=== PATIENT | female | born 1960 | race Caucasian/White ===

== ENCOUNTER 2017-05-06 11:47 | Emergency (ER) | payer OTHER ==
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
[2017-05-06 14:36] VITALS: BP 123/71; PULSE 71; RESP 18; TEMP 97.9; O2SAT 96
== END 2017-05-06 14:36 | disposition home or self-care (01) ==
DX: S16.1XXA Strain of muscle, fascia and tendon at neck level, initial encounter (principal); Z91.040 Latex allergy status; V49.40XA Driver injured in collision with unspecified motor vehicles in traffic accident, initial encounter; Y92.410 Unspecified street and highway as the place of occurrence of the external cause; Y99.8 Other external cause status; Y93.89 Activity, other specified

== ENCOUNTER → 2017-05-23 | Outpatient (CLI) | payer OTHER | LOC: FIMAGING 07:47 | PROVIDERS: ATTEND Family Medicine | DX: Z12.31 Encounter for screening mammogram for malignant neoplasm of breast (principal) | CPT/HCPCS: G0202 ==

== ENCOUNTER → 2017-05-28 | Outpatient (CLI) | payer OTHER | LOC: FIMAGING 07:19 | PROVIDERS: ATTEND Neurological Surgery | DX: M41.84 Other forms of scoliosis, thoracic region (principal); M46.96 Unspecified inflammatory spondylopathy, lumbar region; M50.322 Other cervical disc degeneration at C5-C6 level ==

== ENCOUNTER 2018-02-11 17:37 | Emergency (ER) | payer MEDICAID, OTHER ==
[2018-02-11 17:43] VITALS: TEMP 98.6
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
[2018-02-11] MEDS ORDERED: NS 1,000 ML IV ONE (18:00)
[2018-02-11 18:31] LABS: PLATELET COUNT 262 10^3/uL (150-400)
[2018-02-11 19:12] VITALS: RESP 16
[2018-02-11] MEDS ORDERED: IBUPROFEN 800 MG TAB PO ONE (19:22)
[2018-02-11 19:36] VITALS: BP 105/66; PULSE 76; O2SAT 96
== END 2018-02-11 19:35 | disposition home or self-care (01) ==
DX: T23.271A Burn of second degree of right wrist, initial encounter (principal); T36.4X5A Adverse effect of tetracyclines, initial encounter; E86.9 Volume depletion, unspecified; Z91.040 Latex allergy status; X11.8XXA Contact with other hot tap-water, initial encounter; Y99.8 Other external cause status; Y93.89 Activity, other specified

== ENCOUNTER 2018-02-24 12:17 | Observation (INO) | payer MEDICAID ==
[2018-02-24] MEDS ORDERED: ONDANSETRON 4 MG/2 ML VIAL IVP ONE (13:24)
[2018-02-24] MEDS ORDERED: NS 1,000 ML IV ONE (13:24)
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
[2018-02-24 13:51] LABS: PLATELET COUNT 222 10^3/uL (150-400)
--- NOTE | 2018-02-24 14:02 | CPEKG ---
Heart Rate: 71 RR Interval: 845 P-R Interval: 172 QRSD Interval: 62 QT Interval: 384 QTC Interval: 418 P [place]: 48 QRS [place]: 3 T Wave [place]: 38 EKG Severity - ABNORMAL ECG - EKG Impression: SINUS RHYTHM EKG Impression: LOW VOLTAGE IN FRONTAL LEADS EKG Impression: CONSIDER LEFT VENTRICULAR HYPERTROPHY EKG Impression: ANTERIOR Q WAVES, POSSIBLY DUE TO LVH Electronically Signed By: Nish Poe 24-Feb-2018 14:04:22
[2018-02-24 14:26] LABS: CREATINE KINASE 69 IU/L (0-156)
[2018-02-24] MEDS ORDERED: IOPAMIDOL (ISOVUE-300) 100 ML BTL ONE (14:27)
[2018-02-24 19:07] VITALS: RESP 16
[2018-02-24] MEDS ORDERED: ACETAMINOPHEN 325 MG TAB PO PRN (20:00)
[2018-02-24] MEDS ORDERED: LORazepam 0.5 MG TAB PO PRN (20:00)
[2018-02-24] MEDS ORDERED: ZOLPIDEM TARTRATE 5 MG TAB PO PRN (20:00)
[2018-02-24] MEDS ORDERED: ONDANSETRON 4 MG/2 ML VIAL IVP PRN (20:00)
[2018-02-24] MEDS: NS W/ 20 KCl/L 1,000 ML IV SCH (20:50)
[2018-02-24] MEDS: ONDANSETRON DISINTEGRATING 4 MG TAB PO PRN (20:55)
--- NOTE | 2018-02-24 21:10 | GHP ---
[f rep st] HISTORY AND PHYSICAL DATE OF ADMISSION: 02/24/2018 CHIEF COMPLAINT: Nausea and myalgias. HISTORY OF PRESENT ILLNESS: This is a 57-year-old female who describes herself as in good health and well usually. Three weeks [employer] she suffered a burn while cooking on the volar aspect of her right forearm. She subsequently developed redness and swelling and was treated with oral doxycycline for possible infection. She reports it had become a blister, which she broke, and then it became much redder and swollen, and the erythema, redness, and swelling extended almost to her elbow on the volar aspect. By description, she was describing a strep infection. It was treated with doxycycline 100 mg b.i.d. Within 24-48 hours, she began to develop epigastric pain, then nausea and had vomiting. She was subsequently seen in this emergency department on 02/11 for the same. At that time, she was complaining of lower back pain with left-sided radiculopathy into her thigh with nausea, dizziness, but not vomiting. The problem has waxed and waned. She was then seen by her PCP, and because of the persistence of it and the fact that it has not resolved and the fact that she feels like she is dehydrated, she was referred to the emergency department and now has been admitted. Patient reports that since she started the doxycycline, she had epigastric pain and a feeling of tightness. Her appetite has been reduced. At times she has nausea, but she chooses not to eat because it both causes pain and increases her sense of nausea, in addition to which this has intermittently been accompanied by lower abdominal pain and back pain, which is radiating into her buttocks with some left radiculopathy. The lower abdominal pain and radiculopathy are not constant. She cannot report any exacerbating or alleviating factors for this lower abdominal pain. She has additionally had feelings of aching all over, which could best be described as a myalgia, but denies that she has had laurie arthritis or swelling of any joints, any rash, or clear muscle pain. This is an otherwise very active woman who hikes frequently who now feels quite tired, complains of pain and aching all over, a feeling of nausea, pain in her epigastrium when she eats, and lower abdominal pain and back pain. She denies a prior history of gastrointestinal disorder, heartburn, bowel disorder, renal infection, bladder infections. The symptoms above have not been associated with a laurie fever, chills, sweats, cough, chest pain, or shortness of breath. She does report she has had a headache, which is primarily on the very top of her head. She admits that the problems are causing a sense of anxiousness and resulting in sleeplessness. PAST MEDICAL HISTORY: She denies asthma, allergies, high blood pressure, diabetes, or renal problems. PAST SURGICAL HISTORY: None. REVIEW OF SYSTEMS: A 10-point review of systems is entirely negative as noted above. Specifically, she has not had fever, chills, weight loss, shortness of breath, cough, or dysuria. She is not moving her bowels very often, but she says she is not eating much, and her last bowel movement she describes as being normal. PAST SURGICAL HISTORY: She has had a tonsillectomy, eye surgery, a vaginal sling, and an endometrial biopsy. SOCIAL HISTORY: She is self-employed as she prepares meals for private clients. Tobacco: None. Alcohol is social but not in abuse. FAMILY HISTORY: Noncontributory. She has no history of arthritis, clotting disorder, bleeding diathesis, or connective tissue disorders. PHYSICAL EXAMINATION: GENERAL: This is a thin anxious female who appears otherwise in no distress. VITAL SIGNS: Normal. She is afebrile with normal oxygenation on room air. HEENT: Benign. She has no lesions on her tongue, buccal mucosa. Neck is supple without meningismus, and there is no trauma to the face or scalp. MUSCULOSKELETAL: Chest wall is nontender to palpation. The costosternal junctions are nontender. LUNGS: Clear to P and A. HEART: Singular S1 and S2. No murmur, gallop, rub. JVP judged to be normal. ABDOMEN : Thin. Normoactive bowel sounds. There is a sense of discomfort and some tenderness in the epigastrium, but there is also discomfort and tenderness in the lower quadrants bilaterally, but more on the right than the left, but there is no rebound. EXTREMITIES: Straight leg raise is negative bilaterally. Extremities show a healing wound on her right volar forearm without signs of infection, fluctuance, or cellulitis. There are no track fernando to suggest drug abuse. NEUROLOGIC: Oriented x3. Slightly anxious and nervous female. Cranial nerves 2-12 are intact to specific testing. LABORATORY: Her WBC is normal but shows a prominent left shift with significant band formation. WBC total was 3800 with a hemoglobin of 15.2. Chemistry panel is entirely normal with normal renal function. TSH normal at 1.7. Lipase negative at 183. Urine is entirely clear. Flu swabs for A and B are negative, and her PCR is negative for RSV and mono. ASSESSMENT: Acute and persistent nausea and vomiting, status post a 7-day course of doxycycline approximately 3 weeks prior to admission. Since that time , she has had waxing and waning nausea, a loss of appetite, a feeling of myalgias intermittently without laurie fever or chills. She has a normal white count with significant band formation of undetermined significance. History would not indicate that there is an infectious agent here, although the patient reports significant aching and myalgias ongoingly. There is also no history for travel or possible tick bites and no signs of the same. The symptoms seem all to relate to the dose of doxycycline. Plan here would be to place her on IV fluids for the night and give Zofran for her nausea and reassess in the a.m. Infectious Disease has been contacted and will possibly see the patient regarding the fact that she has significant bands. 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 This syndrome could be precipitated by taking doxycycline, which is a significant stomach irritant and thus creating an axis of stagnation as those would be referred to in oriental medicine in the area of the stomach. The symptomatology here, if other infectious agents and rheumatologic agents can be ruled out, would be amenable to acupuncture for stimulation. I am going to suggest that if her rheumatoid factor, sedimentation rate, CRP, and RAOUL are negative that she be referred for acupuncture either in the hospital or as an outpatient. Patient will be admitted on observation status. She will be a full code. DVT prophylaxis will be with ambulation. She is a low risk. /[id number]/MODL MTDD
[2018-02-24] MEDS: IBUPROFEN 600 MG TAB PO SCH (23:34)
[2018-02-25] MEDS ORDERED: NS 500 ML IV ONE (00:42)
[2018-02-25] MEDS: NS W/ 20 KCl/L 1,000 ML IV SCH (01:49)
[2018-02-25 05:10] LABS: PLATELET COUNT 187 10^3/uL (150-400)
[2018-02-25] MEDS: IBUPROFEN 600 MG TAB PO SCH ×2 (05:26→13:22)
[2018-02-25] MEDS: ONDANSETRON DISINTEGRATING 4 MG TAB PO PRN (05:33)
[2018-02-25 11:33] VITALS: O2SAT 96
--- NOTE | 2018-02-25 12:24 | ASMTCASEMG ---
Living Arrangements What is your living Answers: Alone arrangement? Who do you live with? Type Of Residence What kind of residence do Answers: Apartment you live in? Discharge Plan Comments Coordination Status Comments Notes: Pt is a 57 y/o female admitted for intractable nausea. ID has been consulted. Pt will most likely d/c independent when medically stable. CM spoke w/ WENDI Samayoa regarding d/c POC. No therapies ordered at this time. CM available for changes. Plan: Independent Date Signed: 02/25/2018 12:24 PM Electronically Signed By:NIRAV Morton
--- NOTE | 2018-02-25 12:31 | SOAPPROG ---
SOAP Progress Note Assessment/Plan: Assessment:Qi deficency, Stagnation of Qi and Blood, rebellious stomach Qi Plan:Treatment today, recommend to patient to follow up after discharge from hospital Move Qi and blood, boost Qi, Calm Kenney, Settle Stomach Qi. Treatment: ST 36 , Sp 6, Naomi 3, P6, H7, Jose 6, 12, ear: R kenney men, Sympathetic , Naomi, Pt zero. 02/25/18 12:34 Subjective: Acupuncture consult Symptoms include whole body pain, not constant, in fact better today. Has been dehydrated at times and sometimes receiving fluids has helped. Also nausea, fairly significant today. History of symptoms began after a burn on her arm, received antibiotics, she suspects some reaction to those medications. Has been to ER 4 times in the last 2 weeks. Admitted to hospital on Saturday. She reports being sensitive to medications. Objective: Vital Signs Temp Pulse Resp BP Pulse Ox 36.7 C 74 16 100/71 96 02/25/18 11:29 02/25/18 11:29 02/25/18 11:29 02/25/18 11:29 02/25/18 11:29 Laboratory Results 02/25/18 04:25 02/24/18 02/25/18 02/26/18 05:59 05:59 05:59 Intake Total 1000 Balance 1000 Patient appears quite well oriented, understandably aggravated by her situation , and by the lack of obvious source of her symptoms. She shows clear signs of nausea that comes and goes. Pulse very thin, weak. ICD10 Worksheet Patient Problems: Problems Problem Status Onset Myalgia Acute Nausea alone Acute Medication side effects Acute Second degree burn of right wrist Acute
--- NOTE | 2018-02-25 15:04 | GDS ---
[f rep st] DISCHARGE SUMMARY DISCHARGE DIAGNOSES: Include: 1. Acute nausea. 2. Myalgias. HISTORY OF PRESENT ILLNESS: A 57-year-old female who presents with complaints of severe nausea, ligh theadedness, and myalgias that she attributes to a drug reaction to doxycycline several weeks precedi ng her presentation. The patient reports having sought care in multiple emergency rooms before comin g to [facility]. For details of the patient's initial presentation, please see the history and physical gaston ed 02/24/2018. CONSULTATIVE SERVICES: Include Integrative Medicine, Acupuncture. PROCEDURES: Patient received an acupuncture session prior to disposition. HOSPITAL COURSE BY ISSUE: 1. Nausea. The patient was aggressively fluid resuscitated and treated with IV antiemetics during h er stay. The morning after admission, her nausea has markedly improved. She is tolerating a regular diet without ongoing nausea. We made recommendations that she make a focused effort on maintaining hydration in the outpatient setting. Would like to avoid any additional medications as I believe she is quite sensitive. 2. Myalgias/body pain. The patient's laboratory workup was negative including CBC, viral workup for influenza, RSV, TSH, urinalysis, rheumatoid factor. I am reassured by this initial negative workup. After discussion with the patient, we did seek consultation with Integrative Medicine who provided an integrative care consultation. She will follow in the outpatient setting with this integrative pr ovider. Again, I have not recommended that we add any pain medications or other pharmaceuticals to h er list at disposition. I think best that she continue seeking care from integrative providers. MEDICATIONS: At the time of disposition, please reference the med rec. No new medications were adde d to this patient's list. FOLLOWUP APPOINTMENTS: Include with the integrative provider, Micha Brito, for ongoing manageme nt of her symptoms. PENDING STUDIES: At the time of this dictation include an RAOUL screen. I have asked that she see her primary care provider in 1-2 weeks to follow up on this pending laboratory and her overall progress. TIME SPENT: I spent greater than 30 minutes in the planning and coordination of this discharge. /[id number]/MODL
[2018-02-25 15:24] VITALS: BP 92/61; PULSE 84; TEMP 98.2
== END 2018-02-25 15:45 | disposition home or self-care (01) ==
LOC: F3E 15:28
PROVIDERS: ADMIT Internal Medicine Pulmonary Disease; ATTEND Hospitalist
DX: R11.0 Nausea (principal); M79.1 Myalgia; R42 Dizziness and giddiness; E86.9 Volume depletion, unspecified; R53.83 Other fatigue; R91.1 Solitary pulmonary nodule
CPT/HCPCS: 74177; 93005; 96361; 96374; 99285; G0378; 82947-QW; J2405; Q9967

== ENCOUNTER → 2018-08-14 | Outpatient (CLI) | payer MEDICAID | LOC: FIMAGING 09:26 | PROVIDERS: ATTEND Family Medicine | DX: Z12.31 Encounter for screening mammogram for malignant neoplasm of breast (principal); Z13.820 Encounter for screening for osteoporosis; M85.89 Other specified disorders of bone density and structure, multiple sites ==

== ENCOUNTER → 2019-05-12 | Outpatient (CLI) | payer MEDICAID | LOC: FIMAGING 14:11 ==